=== PATIENT | male | born 1955 | race Caucasian/White ===

== ENCOUNTER 2024-10-11 11:47 | Inpatient (IN) ==
[2024-10-11] MEDS ORDERED: ACETAMINOPHEN 325 MG TABLET PO PRN (13:21)
[2024-10-11] MEDS ORDERED: ONDANSETRON 4 MG/2 ML VIAL IV PRN ×2 (13:21→17:38)
[2024-10-11] MEDS ORDERED: POLYETHYLENE GLYCOL 3350 17 GM PACKET PO PRN ×2 (13:24→17:38)
[2024-10-11] MEDS ORDERED: PROPOFOL 200 MG/20 ML VIAL IV ONE (15:24)
[2024-10-11] MEDS ORDERED: DEXAMETHASONE 10 MG/ML VIAL ONE (15:24)
[2024-10-11] MEDS ORDERED: ONDANSETRON 4 MG/2 ML VIAL ONE (15:24)
[2024-10-11] MEDS ORDERED: LIDOCAINE 2% PF 5 ML VIAL ONE (15:24)
[2024-10-11] MEDS ORDERED: MIDAZOLAM 2 MG/2 ML VIAL ONE (15:24)
[2024-10-11] MEDS ORDERED: GLYCOPYRROLATE 0.2 MG/ML VIAL IV ONE (15:24)
[2024-10-11] MEDS ORDERED: FAMOTIDINE/PF 20 MG/2 ML VIAL IV ONE (15:25)
[2024-10-11] MEDS ORDERED: METOCLOPRAMIDE 10 MG/2 ML VIAL ONE (15:25)
[2024-10-11 15:32] LABS: Basophils # (Auto) 0.03 K/mcL (0.00-0.30); Basophils % (Auto) 0.2 % (0.0-2.0); Eosinophils # (Auto) 0.01 K/mcL (0.00-0.70); Eosinophils % (Auto) 0.1 % (0.0-7.0); Hematocrit 39.6 % (40.1-51.0); Hemoglobin 13.8 g/dL (13.7-17.5); Lymphocytes # (Auto) 1.38 K/mcL (1.50-4.80); Lymphocytes % (Auto) 10.3 % (15.5-49.0); Mean Corpuscular HGB Conc 34.8 g/dL (31.0-36.0); Monocytes # (Auto) 1.00 K/mcL (0.10-0.90); Monocytes % (Auto) 7.4 % (1.0-12.0); Neutrophils % (Auto) 81.8 % (38.0-78.0); Platelet Count 242 K/mcL (140-440); RBC 4.30 M/mcL (4.63-6.08); WBC 13.5 K/mcL (4.5-11.0)
[2024-10-11] MEDS: 0.9 % SODIUM CHLORIDE 10 ML SYRINGE IV SCH ×2 (15:32→21:58)
[2024-10-11 15:45] LABS: ALT/SGPT 20 U/L (<40); AST/SGOT 25 U/L (<40); Albumin 4.3 gm/dL (3.2-5.2); Albumin/Globulin Ratio 1.7 (1.0-2.3); Alkaline Phosphatase 96 U/L (39-117); Anion Gap 12.0 (8.0-16.0); Bilirubin,Total 0.6 mg/dL (0.1-1.0); Blood Urea Nitrogen 19 mg/dL (8-23); Calcium 9.0 mg/dL (8.6-10.4); Carbon Dioxide 24 mmol/L (22-30); Chloride 96 mmol/L (96-108); Globulin 2.6 gm/dL (2.2-3.7); Glucose 116 mg/dL (70-105); Potassium 3.9 mmol/L (3.3-5.1); Sodium 132 mmol/L (133-145)
[2024-10-11] MEDS: ceFAZolin 2 GM in DEXTROSE 5% IN WATER 50 ML IV SCH (16:41)
[2024-10-11] MEDS ORDERED: HYDROmorphone 0.5 MG/0.5 ML SYRINGE ONE (17:20)
[2024-10-11] MEDS ORDERED: BENZOCAINE/MENTHOL 1 LOZENGE PO PRN (17:38)
[2024-10-11] MEDS ORDERED: MAGNESIUM HYDROXIDE 30 ML ORAL.SUSP PO PRN (17:38)
[2024-10-11] MEDS ORDERED: PROMETHAZINE 25 MG/ML VIAL IM PRN (17:38)
[2024-10-11] MEDS ORDERED: BISACODYL 10 MG SUPP.RECT PR PRN (17:38)
[2024-10-11] MEDS ORDERED: FLEETS ADULT 1 DOSE ENEMA PR PRN (17:38)
[2024-10-11] MEDS ORDERED: ROPIVACAINE HCL/PF 30 ML VIAL IJ ONE (17:45)
[2024-10-11] MEDS ORDERED: ceFAZolin 2 GM in DEXTROSE 5% IN WATER 50 ML IV SCH (17:45)
[2024-10-11] MEDS: TRANEXAMIC ACID 1,000 MG/10 ML VIAL IV SCH (18:02)
[2024-10-11] MEDS: LACTATED RINGERS 1,000 ML IV SCH ×2 (19:17→19:27)
[2024-10-11] MEDS ORDERED: SENNOSIDES 1 TABLET PO SCH (21:00)
[2024-10-11] MEDS ORDERED: DOCUSATE SODIUM 100 MG CAPSULE PO SCH (21:00)
[2024-10-11] MEDS: SENNOSIDES 1 TABLET PO SCH (21:57)
[2024-10-11] MEDS: ASPIRIN 81 MG TAB.CHEW CHEWED SCH (21:57)
[2024-10-11] MEDS: MELATONIN 3 MG TABLET PO SCH (21:57)
[2024-10-11] MEDS: DOCUSATE SODIUM 100 MG CAPSULE PO SCH (21:57)
[2024-10-11] MEDS: EZETIMIBE 10 MG TABLET PO SCH (21:57)
[2024-10-11] MEDS: ACETAMINOPHEN 500 MG TABLET PO SCH (21:58)
[2024-10-12 06:13] LABS: Basophils # (Auto) 0.01 K/mcL (0.00-0.30); Basophils % (Auto) 0.1 % (0.0-2.0); Eosinophils # (Auto) 0 K/mcL (0.00-0.70); Eosinophils % (Auto) 0 % (0.0-7.0); Hematocrit 37.6 % (40.1-51.0); Hemoglobin 12.9 g/dL (13.7-17.5); Lymphocytes # (Auto) 0.45 K/mcL (1.50-4.80); Lymphocytes % (Auto) 4.6 % (15.5-49.0); Mean Corpuscular HGB Conc 34.3 g/dL (31.0-36.0); Monocytes # (Auto) 0.19 K/mcL (0.10-0.90); Monocytes % (Auto) 2.0 % (1.0-12.0); Neutrophils % (Auto) 93.1 % (38.0-78.0); Platelet Count 214 K/mcL (140-440); RBC 4.01 M/mcL (4.63-6.08); WBC 9.7 K/mcL (4.5-11.0)
[2024-10-12 06:36] LABS: ALT/SGPT 18 U/L (<40); AST/SGOT 25 U/L (<40); Albumin 4.1 gm/dL (3.2-5.2); Albumin/Globulin Ratio 1.5 (1.0-2.3); Alkaline Phosphatase 91 U/L (39-117); Anion Gap 16.0 (8.0-16.0); Bilirubin,Total 0.4 mg/dL (0.1-1.0); Blood Urea Nitrogen 21 mg/dL (8-23); Calcium 9.0 mg/dL (8.6-10.4); Carbon Dioxide 19 mmol/L (22-30); Chloride 94 mmol/L (96-108); Globulin 2.7 gm/dL (2.2-3.7); Glucose 202 mg/dL (70-105); Potassium 4.3 mmol/L (3.3-5.1); Sodium 129 mmol/L (133-145)
[2024-10-12] MEDS ORDERED: DEXTROSE 50% 50 ML VIAL IV PRN (07:19)
[2024-10-12] MEDS ORDERED: DEXTROSE 31 GM ORAL.SUSP PO PRN (07:19)
[2024-10-12] MEDS: CARVEDILOL 3.125 MG TABLET PO SCH (07:31)
[2024-10-12] MEDS: 0.9 % SODIUM CHLORIDE 1,000 ML IV ONE (07:32)
[2024-10-12] MEDS: INSULIN LISPRO 1 UNIT/0.01 ML UNIT SQ SCH (07:54)
[2024-10-12] MEDS: LISINOPRIL 20 MG TABLET PO SCH (08:42)
[2024-10-12 10:57] LABS: Anion Gap 13.0 (8.0-16.0); Blood Urea Nitrogen 23 mg/dL (8-23); Calcium 8.9 mg/dL (8.6-10.4); Carbon Dioxide 20 mmol/L (22-30); Chloride 95 mmol/L (96-108); Glucose 185 mg/dL (70-105); Potassium 4.9 mmol/L (3.3-5.1); Sodium 128 mmol/L (133-145)
[2024-10-12 11:08] LABS: Estimated Average Glucose(eAG) 126.0 mg/dL; Hemoglobin A1C 6.0 % Hgb (4.0-6.0)
[2024-10-12 14:19] LABS: Sodium, Urine Random < 20 mmol/L
[2024-10-12 15:33] LABS: Sodium 126 mmol/L (133-145)
[2024-10-12] MEDS: METHOCARBAMOL 500 MG TABLET PO PRN (18:46)
[2024-10-13 06:29] LABS: ALT/SGPT 10 U/L (<40); AST/SGOT 34 U/L (<40); Albumin 3.5 gm/dL (3.2-5.2); Albumin/Globulin Ratio 1.6 (1.0-2.3); Alkaline Phosphatase 69 U/L (39-117); Anion Gap 9.0 (8.0-16.0); Basophils # (Auto) 0.01 K/mcL (0.00-0.30); Basophils % (Auto) 0.1 % (0.0-2.0); Bilirubin,Total 0.3 mg/dL (0.1-1.0); Blood Urea Nitrogen 28 mg/dL (8-23); Calcium 8.8 mg/dL (8.6-10.4); Carbon Dioxide 22 mmol/L (22-30); Chloride 96 mmol/L (96-108); Eosinophils # (Auto) 0 K/mcL (0.00-0.70); Eosinophils % (Auto) 0 % (0.0-7.0); Globulin 2.2 gm/dL (2.2-3.7); Glucose 132 mg/dL (70-105); Hematocrit 29.5 % (40.1-51.0); Hemoglobin 10.2 g/dL (13.7-17.5); Lymphocytes # (Auto) 1.04 K/mcL (1.50-4.80); Lymphocytes % (Auto) 7.3 % (15.5-49.0); Mean Corpuscular HGB Conc 34.6 g/dL (31.0-36.0); Monocytes # (Auto) 0.83 K/mcL (0.10-0.90); Monocytes % (Auto) 5.8 % (1.0-12.0); Neutrophils % (Auto) 86.5 % (38.0-78.0); Platelet Count 171 K/mcL (140-440); Potassium 4.5 mmol/L (3.3-5.1); RBC 3.17 M/mcL (4.63-6.08); Sodium 127 mmol/L (133-145); WBC 14.3 K/mcL (4.5-11.0)
== END 2024-10-13 12:35 | disposition home or self-care (01) | DRG 482 ==
LOC: MEDSUR 14:50
PROVIDERS: ADMIT Student in an Organized Health Care Education/Training Program; ATTEND Internal Medicine